=== PATIENT | female | born 1970 | race American Indian/Alaskan Native ===

== ENCOUNTER 2016-06-13 08:15 | Outpatient (CLI) | payer OTHER ==
--- NOTE | 2016-06-14 09:53 | Mammography Report ---
BILATERAL DIGITAL SCREENING MAMMOGRAM with CAD: 06/13/16 08:15:00 CLINICAL: Routine screening. COMPARISON:None. FINDINGS: The breasts are heterogeneously dense, which may obscure small masses and limit the sensitivity of mammography. Bilateral asymmetries require additional imaging.No architectural distortion or suspicious calcifications. IMPRESSION: Bilateral asymmetries requiring further workup. BI-RADS CATEGORY: 0 -- Additional Imaging Evaluation Required RECOMMENDATION: Recalled for bilateral spot magnification views and bilateral breast ultrasound if needed. ACR BI-RADS MAMMOGRAPHIC CODES: 0 = Needs additional imaging evaluation; 1 = Negative; 2 = Benign; 3 = Probably benign; 4 = Suspicious; 5 = Malignant; 6 = Known biopsy-proven malignancy COMMENT: 1. Dense breast tissue, i.e., adenosis, fibrocystic changes, etc., may obscure an underlying neoplasm. 2. Approximately 10% of cancers are not detected with mammography. 3. A negative mammography report should not delay biopsy if a clinically suspicious mass is present. COMMENT: Patient follow-up letters are generated via our [employer] application.
== END 2016-06-13 08:16 | disposition home or self-care (01) ==
LOC: MAMMO 08:15 → SPVWC 08:15
PROVIDERS: ATTEND Family Medicine
DX: Z12.31 Encounter for screening mammogram for malignant neoplasm of breast (principal)
CPT/HCPCS: 77067; G0202

== ENCOUNTER 2016-08-08 14:43 | Outpatient (CLI) | payer OTHER ==
--- NOTE | 2016-08-08 16:35 | Mammography Report ---
Bilateral diagnostic mammogram and targeted right breast ultrasound. History: Recall for bilateral small asymmetries. Findings: On the left side, on both the spot compression image in the 90 degree view, the previously noted ovoid shaped asymmetry is no longer identified. On the right side, spot compression image confirms a low density fairly well-circumscribed asymmetry just below the nipple line. This is also seen on the 90 degree view. Targeted ultrasound of the right breast demonstrates a 4 x 7 mm cyst at the 3:00 position, 4.5 cm from the nipple. This corresponds in size and location to the mammographic density. Impression: Small cyst in the right breast. No suspicious findings are seen. BI-RADS code: 2. Recommendation: Annual screening.
== END 2016-08-08 14:44 | disposition home or self-care (01) ==
LOC: MAMMO 14:43
PROVIDERS: ATTEND Family Medicine
DX: N60.01 Solitary cyst of right breast (principal)
CPT/HCPCS: 76642; G0204; 77066